=== PATIENT | male | born 1960 | race Caucasian/White ===

== ENCOUNTER 2023-04-05 13:17 | Inpatient (IN) | payer OTHER ==
[2023-04-05 13:42] VITALS: BMI 19.7
[2023-04-05] MEDS ORDERED: IBUPROFEN 600 MG TABLET (FP) PO PRN (14:43)
[2023-04-05] MEDS ORDERED: POLYETHYLENE GLYCOL (HEALTHYLAX) 3350 17 GM PACKET PO PRN (14:43)
[2023-04-05] MEDS ORDERED: MAG HYDROX/AL HYDROX/SIMETH 30 ML UNIT-DOSE CUP PO PRN (14:43)
[2023-04-05] MEDS ORDERED: LOPERAMIDE HCL 2 MG CAPSULE PO PRN (14:43)
[2023-04-05] MEDS ORDERED: ACETAMINOPHEN 325 MG TABLET (FP) PO PRN (14:43)
[2023-04-05] MEDS ORDERED: MAGNESIUM HYDROX 2400MG/30ML ORAL SUSPENSION 30 ML CUP PO PRN (14:43)
[2023-04-05] MEDS ORDERED: BENZOCAINE/MENTHOL (CHLORASEPTIC ) LOZENGE MM PRN (14:43)
[2023-04-05] MEDS ORDERED: NALOXONE HCL 0.4 MG/ML VIAL IM PRN (14:43)
[2023-04-05] MEDS ORDERED: IBUPROFEN 400 MG TABLET (FP) PO PRN (14:43)
[2023-04-05] MEDS ORDERED: NICOTINE POLACRILEX 2 MG GUM BUC PRN (14:43)
[2023-04-05] MEDS ORDERED: NALOXONE HCL (KLOXXADO) 8 MG SPRAY NS PRN (14:43)
[2023-04-05] MEDS ORDERED: guaiFENesin 600 MG TABLET.ER (FP) PO PRN (14:43)
[2023-04-05] MEDS ORDERED: BENZONATATE 200 MG CAPSULE PO PRN (14:43)
[2023-04-05] MEDS ORDERED: ONDANSETRON *ODT* 4 MG TABLET SL PRN (14:43)
[2023-04-05] MEDS ORDERED: ALBUTEROL SO4 HFA INHALER IH PRN (14:49)
[2023-04-05] MEDS: INSULIN ASPART SLIDING SCALE (NOVOLOG) 1 VIAL SQ SCH (17:18)
[2023-04-05] MEDS: MELATONIN 5 MG TABLETS PO SCH (22:10)
[2023-04-05] MEDS: THIAMINE HCL 100 MG TABLET (FP) PO SCH (22:10)
[2023-04-06] MEDS: INSULIN ASPART SLIDING SCALE (NOVOLOG) 1 VIAL SQ SCH ×2 (06:32→16:45)
[2023-04-06] MEDS ORDERED: methaDONE HCL 10 MG TABLET PO SCH (08:15)
[2023-04-06] MEDS: methaDONE 40 MG, methaDONE 30 MG PO SCH (09:08)
[2023-04-06] MEDS: PRENATAL VITAMINS W/ FOLIC ACID TABLET (FP) PO SCH (09:09)
[2023-04-06] MEDS ORDERED: diazePAM 5 MG TABLET PO PRN (09:40)
[2023-04-06] MEDS: diazePAM 5 MG TABLET PO SCH ×3 (10:43→22:08)
[2023-04-06 11:43] LABS: CHLORIDE 109 mmol/L (98-107); POTASSIUM 4.3 mmol/L (3.5-5.1); SODIUM 141 mmol/L (136-145)
[2023-04-06 11:49] LABS: GLUCOSE,RANDOM 85 mg/dL (74-106)
[2023-04-06 11:50] LABS: CALCIUM 8.5 mg/dL (8.5-10.1)
[2023-04-06 11:51] LABS: ALBUMIN 2.7 g/dl (3.4-5.0); ANION GAP 3 mmol/L (4-13); BLOOD UREA NITROGEN 15.3 mg/dL (7-18); CO2 28 mmol/L (21-32)
[2023-04-06 11:54] LABS: CREATININE 0.6 mg/dL (0.55-1.3); SGOT/AST 21 U/L (15-37); SGPT/ALT 23 U/L (13-61)
[2023-04-06 11:55] LABS: BILIRUBIN,TOTAL 0.1 mg/dL (0.2-1); TOT PROT 5.6 g/dl (6.4-8.2)
[2023-04-06 11:58] LABS: ALK PHOS 85 U/L (45-117)
[2023-04-06 12:04] LABS: HEMATOCRIT 31.8 % (35.4-49); HEMOGLOBIN 10.3 GM/dL (11.7-16.9); MCHC 32.6 g/dl (32.0-35.9); MEAN CELL VOLUME 89.1 fl (80-96); MEAN PLT VOLUME 8.8 fl (7.5-11.1); PLATELET COUNT 139 10^3/uL (134-434); RBC 3.57 M/mm3 (4.00-5.60); RDW 13.1 % (11.9-15.9)
[2023-04-06] MEDS: BISMUTH SUBSALICYLATE 262 MG/15 ML BTL PO PRN (17:31)
[2023-04-06] MEDS: THIAMINE HCL 100 MG TABLET (FP) PO SCH (22:01)
[2023-04-06] MEDS: MELATONIN 5 MG TABLETS PO SCH (22:01)
[2023-04-07] MEDS: diazePAM 5 MG TABLET PO SCH ×4 (05:55→22:05)
[2023-04-07] MEDS: methaDONE 40 MG, methaDONE 30 MG PO SCH (05:56)
[2023-04-07] MEDS: BISMUTH SUBSALICYLATE 262 MG/15 ML BTL PO PRN ×2 (06:03→10:23)
[2023-04-07] MEDS: INSULIN ASPART SLIDING SCALE (NOVOLOG) 1 VIAL SQ SCH ×2 (06:19→17:29)
[2023-04-07] MEDS: PRENATAL VITAMINS W/ FOLIC ACID TABLET (FP) PO SCH (10:19)
[2023-04-07] MEDS: THIAMINE HCL 100 MG TABLET (FP) PO SCH (22:02)
[2023-04-07] MEDS: MELATONIN 5 MG TABLETS PO SCH (22:02)
[2023-04-08] MEDS: diazePAM 5 MG TABLET PO SCH ×3 (05:35→22:45)
[2023-04-08] MEDS: methaDONE 40 MG, methaDONE 30 MG PO SCH (05:35)
[2023-04-08] MEDS: INSULIN ASPART SLIDING SCALE (NOVOLOG) 1 VIAL SQ SCH ×2 (06:13→16:53)
[2023-04-08] MEDS: PRENATAL VITAMINS W/ FOLIC ACID TABLET (FP) PO SCH (10:52)
[2023-04-08] MEDS: BISMUTH SUBSALICYLATE 262 MG/15 ML BTL PO PRN (18:41)
[2023-04-08 20:54] VITALS: RESP 16
[2023-04-08] MEDS: MELATONIN 5 MG TABLETS PO SCH (22:45)
[2023-04-08] MEDS: THIAMINE HCL 100 MG TABLET (FP) PO SCH (22:45)
[2023-04-09] MEDS: diazePAM 5 MG TABLET PO SCH ×2 (06:06→17:50)
[2023-04-09] MEDS: methaDONE 40 MG, methaDONE 30 MG PO SCH (06:06)
[2023-04-09] MEDS: INSULIN ASPART SLIDING SCALE (NOVOLOG) 1 VIAL SQ SCH ×2 (06:27→17:52)
[2023-04-09] MEDS: PRENATAL VITAMINS W/ FOLIC ACID TABLET (FP) PO SCH (10:42)
[2023-04-09] MEDS: BISMUTH SUBSALICYLATE 262 MG/15 ML BTL PO PRN (17:51)
[2023-04-09] MEDS: MELATONIN 5 MG TABLETS PO SCH (22:05)
[2023-04-09] MEDS: THIAMINE HCL 100 MG TABLET (FP) PO SCH (22:05)
[2023-04-10] MEDS: methaDONE 40 MG, methaDONE 30 MG PO SCH (05:53)
[2023-04-10] MEDS ORDERED: diazePAM 5 MG TABLET PO ONE (06:00)
[2023-04-10] MEDS: INSULIN ASPART SLIDING SCALE (NOVOLOG) 1 VIAL SQ SCH (06:11)
[2023-04-10] MEDS: PRENATAL VITAMINS W/ FOLIC ACID TABLET (FP) PO SCH (10:35)
[2023-04-10 13:14] VITALS: BP 100/60; PULSE 61; TEMP 98.4
== END 2023-04-10 13:12 | disposition other institution (70) | DRG 773 ==
LOC: YASAS 13:17 → Y3N 15:20
PROVIDERS: ADMIT Allergy & Immunology; ATTEND Allergy & Immunology
PROC: HZ2ZZZZ Detoxification Services for Substance Abuse Treatment (ICD-10-PCS; principal; 2023-04-05)
DX: F10.230 Alcohol dependence with withdrawal, uncomplicated (principal); F11.20 Opioid dependence, uncomplicated; F31.9 Bipolar disorder, unspecified; F20.9 Schizophrenia, unspecified; F19.24 Other psychoactive substance dependence with psychoactive substance-induced mood disorder; F51.01 Primary insomnia; H91.91 Unspecified hearing loss, right ear; H54.40 Blindness, one eye, unspecified eye; H53.8 Other visual disturbances; J44.9 Chronic obstructive pulmonary disease, unspecified; E11.9 Type 2 diabetes mellitus without complications; M10.9 Gout, unspecified; Z87.891 Personal history of nicotine dependence; Z86.69 Personal history of other diseases of the nervous system and sense organs; Z99.89 Dependence on other enabling machines and devices
CPT/HCPCS: 36415; 80053; 80307; 82962; 85027; 86780; 87635; 93005; 93010

== ENCOUNTER 2023-04-10 13:19 | Inpatient (IN) | payer OTHER ==
[2023-04-10] MEDS ORDERED: FLU VACCINE (FLULAVAL) PF 60 MCG/0.5 ML SYRINGE 2023-2024 IM ONE (14:12)
[2023-04-10] MEDS ORDERED: PNEUMOC 20-VAL CONJ-DIP CRM/PF 0.5 ML SYRINGE IM ONE (14:12)
[2023-04-10] MEDS ORDERED: guaiFENesin 600 MG TABLET.ER (FP) PO PRN (14:34)
[2023-04-10] MEDS ORDERED: IBUPROFEN 400 MG TABLET (FP) PO PRN (14:34)
[2023-04-10] MEDS ORDERED: NALOXONE HCL (KLOXXADO) 8 MG SPRAY NS PRN (14:34)
[2023-04-10] MEDS ORDERED: NICOTINE POLACRILEX 2 MG LOZENGE BC PRN (14:34)
[2023-04-10] MEDS ORDERED: NALOXONE HCL 0.4 MG/ML VIAL IVPUSH PRN (14:34)
[2023-04-10] MEDS ORDERED: hydrOXYzine PAMOATE 25 MG CAPSULE (FP) PO PRN (14:34)
[2023-04-10] MEDS ORDERED: LOPERAMIDE HCL 2 MG CAPSULE PO PRN (14:34)
[2023-04-10] MEDS ORDERED: METHOCARBAMOL 500 MG TABLET PO PRN (14:34)
[2023-04-10] MEDS ORDERED: BENZOCAINE/MENTHOL (CHLORASEPTIC ) LOZENGE MM PRN (14:34)
[2023-04-10] MEDS ORDERED: MAGNESIUM HYDROX 2400MG/30ML ORAL SUSPENSION 30 ML CUP PO PRN (14:34)
[2023-04-10] MEDS ORDERED: POLYETHYLENE GLYCOL (HEALTHYLAX) 3350 17 GM PACKET PO PRN (14:34)
[2023-04-10] MEDS ORDERED: BENZONATATE 200 MG CAPSULE PO PRN (14:34)
[2023-04-10] MEDS: THIAMINE HCL 100 MG TABLET (FP) PO SCH (23:14)
[2023-04-10] MEDS: MELATONIN 5 MG TABLETS PO SCH (23:14)
[2023-04-11] MEDS ORDERED: methaDONE HCL 40 MG DISPERSABLE TABLET PO SCH (06:00)
[2023-04-11] MEDS: methaDONE 40 MG, methaDONE 30 MG PO SCH (06:22)
[2023-04-11] MEDS: ALBUTEROL SO4 HFA INHALER IH PRN (07:57)
[2023-04-11] MEDS: PRENATAL VITAMINS W/ FOLIC ACID TABLET (FP) PO SCH (09:34)
[2023-04-11] MEDS: HYDROCORTISONE 1% TOPICAL CREAM 30 GM TUBE TP PRN (12:19)
[2023-04-11] MEDS: FLU VACCINE (FLULAVAL) PF 60 MCG/0.5 ML SYRINGE 2023-2024 IM ONE (12:23)
[2023-04-11] MEDS: PNEUMOC 20-VAL CONJ-DIP CRM/PF 0.5 ML SYRINGE IM ONE (12:35)
[2023-04-11 13:40] LABS: POTASSIUM 4.5 mmol/L (3.5-5.1)
[2023-04-11 13:48] LABS: BLOOD UREA NITROGEN 23.2 mg/dL (7-18); CALCIUM 9.1 mg/dL (8.5-10.1)
[2023-04-11 13:53] LABS: CREATININE 0.8 mg/dL (0.55-1.3)
[2023-04-11 13:55] LABS: TOT PROT 6.6 g/dl (6.4-8.2)
[2023-04-11 13:56] LABS: BILIRUBIN,TOTAL 0.1 mg/dL (0.2-1)
[2023-04-11 14:13] LABS: ALBUMIN 3.2 g/dl (3.4-5.0)
[2023-04-12] MEDS: INSULIN (NOVOLOG) ASPART 100 UNITS/ML 10ML VIAL SQ ONE (07:01)
[2023-04-12] MEDS: risperiDONE 0.5 MG TABLET PO SCH (10:21)
[2023-04-12] MEDS: NICOTINE 14 MG/24 HOURS TOPICAL PATCH TD SCH (10:41)
[2023-04-12 19:51] LABS: HIV INTERPRETATION NEGATIVE (NEGATIVE)
[2023-04-13] MEDS: MAG HYDROX/AL HYDROX/SIMETH 30 ML UNIT-DOSE CUP PO PRN (21:06)
[2023-04-14] MEDS: ACETAMINOPHEN 325 MG TABLET (FP) PO PRN (09:44)
[2023-04-18] MEDS: CYCLOBENZAPRINE HCL 5 MG TABLET PO PRN (14:34)
[2023-04-20] MEDS: IBUPROFEN 600 MG TABLET (FP) PO PRN (21:29)
[2023-04-21] MEDS: CYCLOBENZAPRINE HCL 5 MG TABLET PO SCH (15:08)
[2023-04-29] MEDS: SIMETHICONE 80 MG TAB.CHEW (FP) PO PRN (16:00)
[2023-05-02] MEDS: ALBUTEROL SO4 0.083% IH SOL 2.5 MG/3 ML VIAL.NEB. NEB PRN (18:23)
[2023-05-05] MEDS: CYCLOBENZAPRINE HCL 5 MG TABLET PO SCH (21:10)
[2023-05-08 19:46] VITALS: RESP 16
[2023-05-09 06:48] VITALS: BP 116/67; PULSE 81; TEMP 98.1
== END 2023-05-09 09:56 | disposition home or self-care (01) | DRG 772 ==
LOC: YASAS 13:19 → Y5N 13:20
PROVIDERS: ADMIT Allergy & Immunology; ATTEND Psychiatry & Neurology Pain Medicine
PROC: HZ42ZZZ Group Counseling for Substance Abuse Treatment, Cognitive-Behavioral (ICD-10-PCS; principal; 2023-04-10)
DX: F10.20 Alcohol dependence, uncomplicated (principal); F11.20 Opioid dependence, uncomplicated; F17.210 Nicotine dependence, cigarettes, uncomplicated; F20.9 Schizophrenia, unspecified; F31.9 Bipolar disorder, unspecified; F19.24 Other psychoactive substance dependence with psychoactive substance-induced mood disorder; H91.91 Unspecified hearing loss, right ear; H54.40 Blindness, one eye, unspecified eye; H53.8 Other visual disturbances; M41.9 Scoliosis, unspecified; L30.9 Dermatitis, unspecified; Z20.822 Contact with and (suspected) exposure to COVID-19; Z99.89 Dependence on other enabling machines and devices
CPT/HCPCS: 36415; 80053; 82140; 82248; 82962; 83036; 87389; 87635; 90677; 90686; 94640; G0008

== ENCOUNTER 2023-05-26 13:03 | Inpatient (IN) | payer OTHER ==
[2023-05-26 14:10] VITALS: BMI 19.3
[2023-05-26] MEDS ORDERED: NALOXONE HCL 0.4 MG/ML VIAL IM PRN (17:02)
[2023-05-26] MEDS ORDERED: MAG HYDROX/AL HYDROX/SIMETH 30 ML UNIT-DOSE CUP PO PRN (17:02)
[2023-05-26] MEDS ORDERED: NALOXONE HCL (KLOXXADO) 8 MG SPRAY NS PRN (17:02)
[2023-05-26] MEDS ORDERED: IBUPROFEN 600 MG TABLET (FP) PO PRN (17:02)
[2023-05-26] MEDS ORDERED: guaiFENesin 600 MG TABLET.ER (FP) PO PRN (17:02)
[2023-05-26] MEDS ORDERED: P-EPHED 60MG/TRIPROLIDI 2.5MG TABLET PO PRN (17:02)
[2023-05-26] MEDS ORDERED: BENZOCAINE/MENTHOL (CHLORASEPTIC ) LOZENGE MM PRN (17:02)
[2023-05-26] MEDS ORDERED: BENZONATATE 200 MG CAPSULE PO PRN (17:02)
[2023-05-26] MEDS ORDERED: LOPERAMIDE HCL 2 MG CAPSULE PO PRN (17:02)
[2023-05-26] MEDS ORDERED: ALBUTEROL SO4 HFA INHALER IH PRN (17:03)
[2023-05-26] MEDS ORDERED: methaDONE HCL 10 MG TABLET (FOR DETOX USE ONLY) ONE (17:24)
[2023-05-26] MEDS ORDERED: GABAPENTIN 100 MG CAPSULE ONE (17:24)
[2023-05-26] MEDS: methaDONE HCL 10 MG TABLET PO ONE (17:26)
[2023-05-26] MEDS: GABAPENTIN 100 MG CAPSULE PO SCH (17:30)
[2023-05-26] MEDS: THIAMINE HCL 100 MG TABLET (FP) PO SCH (21:52)
[2023-05-26] MEDS: CYCLOBENZAPRINE HCL 5 MG TABLET PO PRN (21:53)
[2023-05-26] MEDS: MELATONIN 5 MG TABLETS PO SCH (21:55)
[2023-05-27] MEDS: ACETAMINOPHEN 325 MG TABLET (FP) PO PRN (01:33)
[2023-05-27] MEDS: MELATONIN 5 MG TABLETS PO ONE (02:11)
[2023-05-27] MEDS: PRENATAL VITAMINS W/ FOLIC ACID TABLET (FP) PO SCH (09:19)
[2023-05-27] MEDS: methaDONE HCL 40 MG DISPERSABLE TABLET PO ONE (11:26)
[2023-05-27] MEDS: CYCLOBENZAPRINE HCL 10 MG TABLET (FP) PO PRN (13:09)
[2023-05-27 16:03] LABS: EPI CELLS 8 /uL (0-25.1); HYALINE CASTS 1 /uL (0-3.1); PH,URINE 6.5 (5.0-8.0); URINE APPEARANCE CLEAR; URINE BACTERIA 6 /uL (0-1359); URINE BILIRUBIN NEGATIVE (NEGATIVE); URINE COLOR YELLOW; URINE GLUCOSE (UA) NEGATIVE (NEGATIVE); URINE KETONE NEGATIVE (NEGATIVE); URINE LEUK ESTERASE NEGATIVE (NEGATIVE); URINE NITRITE NEGATIVE (NEGATIVE); URINE PROTEIN NEGATIVE (NEGATIVE); URINE RBC 96 /uL (0-23.9); URINE WBC 13 /uL (0-25.8)
[2023-05-27] MEDS: traZODone HCL 50 MG TABLET (FP) PO SCH (21:21)
[2023-05-28] MEDS: methaDONE 40 MG, methaDONE 10 MG PO ONE (06:27)
[2023-05-28] MEDS ORDERED: methaDONE HCL 10 MG TABLET (FOR DETOX USE ONLY) PO ONE (10:00)
[2023-05-29] MEDS: methaDONE 40 MG, methaDONE 20 MG PO ONE (06:16)
[2023-05-29] MEDS ORDERED: methaDONE HCL 10 MG TABLET (FOR DETOX USE ONLY) PO ONE (10:00)
[2023-05-30] MEDS ORDERED: methaDONE HCL 10 MG TABLET PO SCH (06:00)
[2023-05-30] MEDS: methaDONE 40 MG, methaDONE 30 MG PO SCH (06:04)
[2023-05-30] MEDS: IBUPROFEN 400 MG TABLET (FP) PO PRN (09:37)
[2023-05-31] MEDS: HYDROCORTISONE 1% TOPICAL CREAM 30 GM TUBE TP PRN (09:35)
[2023-06-04] MEDS: MAGNESIUM HYDROX 2400MG/30ML ORAL SUSPENSION 30 ML CUP PO PRN (17:10)
[2023-06-07] MEDS: methaDONE 40 MG, methaDONE 30 MG PO SCH (06:30)
[2023-06-07] MEDS: DOCUSATE SODIUM 100 MG CAPSULE (FP) PO PRN (09:59)
[2023-06-08] MEDS: POLYETHYLENE GLYCOL (HEALTHYLAX) 3350 17 GM PACKET PO PRN (09:07)
[2023-06-08] MEDS: BISACODYL 5 MG TABLET.DR (FP) PO PRN (21:06)
[2023-06-08] MEDS: DOCUSATE SODIUM 100 MG CAPSULE (FP) PO SCH (21:07)
[2023-06-13] MEDS ORDERED: DICYCLOMINE HCL 10 MG CAPSULE PO PRN (08:23)
[2023-06-13] MEDS ORDERED: POLYETHYLENE GLYCOL (HEALTHYLAX) 3350 17 GM PACKET PO PRN (08:23)
[2023-06-13] MEDS ORDERED: BISMUTH SUBSALICYLATE 524 MG/30 ML PO PRN (08:23)
[2023-06-20 06:29] VITALS: RESP 16
[2023-06-23 06:30] VITALS: BP 131/88; PULSE 80; TEMP 97.1
== END 2023-06-23 09:19 | disposition home or self-care (01) | DRG 772 ==
LOC: YASAS 13:03 → Y3NR 20:29 → Y3E 05-27 17:25
PROVIDERS: ADMIT Allergy & Immunology; ATTEND Psychiatry & Neurology Pain Medicine
PROC: HZ42ZZZ Group Counseling for Substance Abuse Treatment, Cognitive-Behavioral (ICD-10-PCS; principal; 2023-05-26)
DX: F14.20 Cocaine dependence, uncomplicated (principal); F12.20 Cannabis dependence, uncomplicated; F19.24 Other psychoactive substance dependence with psychoactive substance-induced mood disorder; F25.9 Schizoaffective disorder, unspecified; F31.9 Bipolar disorder, unspecified; F51.01 Primary insomnia; F41.9 Anxiety disorder, unspecified; H91.91 Unspecified hearing loss, right ear; K59.00 Constipation, unspecified; L30.9 Dermatitis, unspecified; M41.9 Scoliosis, unspecified; R26.89 Other abnormalities of gait and mobility; Z87.891 Personal history of nicotine dependence; Z86.39 Personal history of other endocrine, nutritional and metabolic disease; Z99.89 Dependence on other enabling machines and devices
CPT/HCPCS: 0241U-QW; 80305; 81003